=== PATIENT | male | born 1990 | race African-American/Black ===

== ENCOUNTER 2019-06-22 20:18 | Emergency (ER) | payer BC ==
[~2019-06-22] VITALS: Ht 193 cm; Wt 86.2 kg
[2019-06-22 20:36] VITALS: BP_SYST 124
[2019-06-23] MEDS ORDERED: KETOROLAC TROMETHAMINE 60 MG/2 ML VIAL IM ONE (00:15)
[2019-06-23 01:55] VITALS: BP_SYST 124
== END 2019-06-23 01:55 | disposition home or self-care (01) ==
LOC: SED 20:18
DX: S83.004A Unspecified dislocation of right patella, initial encounter (principal); S83.91XA Sprain of unspecified site of right knee, initial encounter; X50.0XXA Overexertion from strenuous movement or load, initial encounter; Y93.67 Activity, basketball; Y92.89 Other specified places as the place of occurrence of the external cause; Y99.8 Other external cause status
CPT/HCPCS: 72170; 73552; 73564; 96372; 99283; J1885